=== PATIENT | male | born 1990 | race Caucasian/White ===

== ENCOUNTER 2022-02-13 19:28 | Inpatient (IN) | payer BC, OTHER ==
[~2022-02-13 19:28] MED LIST: Iopamidol 300 61% 100 ML VIAL FS ONE
[2022-02-13 20:09] LABS: #Basophils 0.2 10x3/uL (0.0-0.2); #Eosinphils 0.2 10x3/uL (0.0-0.5); #Monocytes 0.9 10x3/uL (0.0-1.1); %Basophils 1.2 % (0.0-2.0); %Eosinophils 1.2 % (0.0-6.0); %Lymphocytes 7.3 % (18.0-47.0); %Monocytes 7.6 % (0.0-10.0); %Neutrophils 81.7 % (40.0-75.0); Mean Corpuscular HGB CONC 28.6 g/dL (32.0-36.0); Mean Corpuscular Hemoglobin 19.9 pg (27.0-33.0); Mean Corpuscular Volume 69.8 fl (81.2-95.1); Mean Platelet Volume 9.8 fl (7.4-10.4); Platelet Count 236 10x3/uL (150-450); RBC Distribution Width 24.8 % (11.5-14.5); Red Blood Cell (RBC) Count 3.51 10x6/uL (4.32-5.72); White Blood Cell (WBC) Count 12.2 10x3/uL (3.5-10.5)
[2022-02-13] MEDS ORDERED: Furosemide 40 MG/4 ML VIAL ONE (20:10)
[2022-02-13 20:21] LABS: ALT (SGPT) 26 U/L (8-55); AST (SGOT) 150 U/L (5-34); Albumin 3.6 g/dL (3.5-5.0); Alcohol 50 mg/dL (Less than 10); Alkaline Phosphatase 241 U/L (40-110); Anion Gap 20 mmol/L (10-20); BUN (Urea Nitrogen) Less than 4 mg/dL (8.9-20.6); Bilirubin, Total 13.2 mg/dL (0.2-1.2); Calc. Creatinine Clearance 0 mL/min (70-130); Calcium 8.5 mg/dL (7.8-10.44); Carbon Dioxide 20 mmol/L (22-29); Chloride 96 mmol/L (98-107); Estimated GFR 128; Globulin 3.9 g/dL (2.4-3.5); Glucose 103 mg/dL (70-105); Lipase 14 U/L (8-78); Potassium 4.1 mmol/L (3.5-5.1); Protein, Total 7.5 g/dL (6.0-8.3); Sodium 132 mmol/L (136-145)
[2022-02-13 20:31] LABS: Anisocytosis SLIGHT = 6-15 cells (100X) (0-5/hpf); Hypochromia MODERATE=16-30 cells (100X) (0-5/hpf); Microcytosis SLIGHT = 6-15 cells (100X) (0-5/hpf); Platelet Morphology Comment Appears Adequate; Polychromasia SLIGHT = 2-3 cells (100X) (0-2/hpf); Target Cells SLIGHT = 2-5 cells (100X) (0-1/hpf)
[2022-02-13 20:40] LABS: D-Dimer Test 3.04 mg/L FEU (0.19-0.50); INR-International Normal Ratio 1.5; PTT 30.1 sec (22.0-33.0); Prothrombin Time 15.6 sec (9.5-12.1)
[2022-02-13 20:45] LABS: SARS-CoV-2 NAA Rapid Test Not Detected (NotDetected)
[2022-02-13 20:53] LABS: Bilirubin 1+ (Negative); Blood, Urine Negative (Negative); Glucose, Urine (Dipstick) Normal (Negative); Ketone, Urine Negative (Negative); Leukocyte Negative (Negative); Nitrite Negative (Negative); Protein, Urine (Dipstick) Negative (Neg-Trace)
[2022-02-13 21:02] LABS: Amphetamine Not Detected (NotDetected); Barbiturates Screen Not Detected (NotDetected); Benzodiazepine Screen Not Detected (NotDetected); Cocaine Metabolite Screen Not Detected (NotDetected); Methadone Not Detected (NotDetected); Methamphetamine Not Detected (NotDetected); Opiate Screen Not Detected (NotDetected); Oxycodone Screen Not Detected (NotDetected); Phencyclidine (PCP) Not Detected (NotDetected); THC/Cannabinoid Screen Detected (NotDetected); Tricyclic Screen Not Detected (NotDetected)
[2022-02-13] MEDS ORDERED: Pantoprazole 40 MG VIAL ONE (21:13)
[2022-02-13] MEDS ORDERED: Octreotide Acetate 1,250 MCG in Sodium Chloride 0.9% 250 ML 250 ML IVPB SCH (21:15)
[2022-02-13] MEDS ORDERED: Ondansetron PF 4 MG/2 ML Vial IVP PRN (21:21)
[2022-02-13] MEDS ORDERED: Sodium Chloride 0.9% 1,000 ML IV SCH (21:30)
[2022-02-13] MEDS ORDERED: Tranexamic Acid 1,000 MG/10 ML VIAL FS SCH (21:30)
[2022-02-13] MEDS ORDERED: Octreotide Acetate 100 MCG/ML VIAL ONE (21:39)
[2022-02-13] MEDS ORDERED: cefTRIAXone\\ROCEPHIN 2 GM VIAL ONE (21:39)
[2022-02-13] MEDS ORDERED: Lorazepam 2 MG/ML VIAL ONE (21:58)
[2022-02-13] MEDS ORDERED: Albumin 25% 25 GM/100 ML BOT IVPB SCH (22:00)
[2022-02-13 22:08] LABS: Lactic Acid 4.1 mmol/L (0.5-2.2)
[2022-02-13] MEDS ORDERED: Fentanyl 100 MCG/2 ML VIAL ONE (22:14)
[2022-02-13] MEDS ORDERED: PROPOFOL 20 ML ONE (22:14)
[2022-02-13] MEDS ORDERED: Succinylcholine 200 MG/10 ml SYRINGE FS ONE (22:14)
[2022-02-13] MEDS ORDERED: PHENYLEPHRINE-NS 100 MCG/ML 10 ML SYRINGE ONE (22:33)
[2022-02-13] MEDS ORDERED: Ondansetron PF 4 MG/2 ML Vial ONE (22:47)
[2022-02-13 22:50] LABS: Iron 23 ug/dL (65-175); Iron Binding Capacity, Total 326 mcg/dL (261-462)
[2022-02-13] MEDS ORDERED: Dextrose 5 %-0.45 % NaCl 1,000 ML ONE (23:34)
[2022-02-13] MEDS ORDERED: Thiamine HCl 200 MG/2 ML VIAL ONE (23:34)
[2022-02-13] MEDS: Lorazepam 2 MG/ML VIAL SLOW IVP PRN (23:48)
[2022-02-13 23:50] LABS: Lactic Acid 4.8 mmol/L (0.5-2.2)
[2022-02-14] MEDS: Cepastat Lozenges 1 LOZ PO PRN ×4 (00:01→22:07)
[2022-02-14] MEDS: Multivitamins, Adult 10 ML, Folic Acid 1 MG, Thiamine HCl 100 MG in Dextrose 5 %-0.45 %... IV SCH ×2 (00:02→21:07)
[2022-02-14] MEDS ORDERED: Morphine 4 MG/ML VIAL SLOW IVP SCH (00:30)
[2022-02-14] MEDS ORDERED: Lidocaine 2% Viscous Solution 10 ML, Aluminum & Magnesium Hydroxide 30 ML SSW SCH (00:30)
[2022-02-14] MEDS: Pantoprazole 80 MG in Sodium Chloride 0.9% 100 ML IVPB SCH ×3 (01:24→20:10)
[2022-02-14] MEDS: Dextrose 5 %-0.45 % NaCl 1,000 ML IV SCH ×2 (02:37→11:51)
[2022-02-14 02:53] LABS: Hemoglobin 6.9 g/dL (13.5-17.5); Mean Corpuscular HGB CONC 28.8 g/dL (32.0-36.0); Mean Corpuscular Hemoglobin 20.4 pg (27.0-33.0); Mean Corpuscular Volume 70.8 fl (81.2-95.1); Mean Platelet Volume 10.5 fl (7.4-10.4); Platelet Count 141 10x3/uL (150-450); RBC Distribution Width 24.3 % (11.5-14.5); Red Blood Cell (RBC) Count 3.39 10x6/uL (4.32-5.72); White Blood Cell (WBC) Count 16.8 10x3/uL (3.5-10.5)
[2022-02-14 03:01] LABS: INR-International Normal Ratio 1.6; PTT 28.3 sec (22.0-33.0); Prothrombin Time 16.7 sec (9.5-12.1)
[2022-02-14 03:05] LABS: Lactic Acid 2.5 mmol/L (0.5-2.2)
[2022-02-14 03:09] LABS: ALT (SGPT) 25 U/L (8-55); AST (SGOT) 133 U/L (5-34); Albumin 3.5 g/dL (3.5-5.0); Alkaline Phosphatase 235 U/L (40-110); Anion Gap 19 mmol/L (10-20); BUN (Urea Nitrogen) Less than 4 mg/dL (8.9-20.6); Bilirubin, Direct 8.9 mg/dL (0.1-0.3); Bilirubin, Total 13.1 mg/dL (0.2-1.2); Calc. Creatinine Clearance 220 mL/min (70-130); Calcium 8.4 mg/dL (7.8-10.44); Carbon Dioxide 22 mmol/L (22-29); Chloride 97 mmol/L (98-107); Estimated GFR 123; Globulin 3.9 g/dL (2.4-3.5); Glucose 114 mg/dL (70-105); Magnesium 1.8 mg/dL (1.6-2.6); Phosphorus 4.4 mg/dL (2.3-4.7); Potassium 4.6 mmol/L (3.5-5.1); Protein, Total 7.4 g/dL (6.0-8.3); Sodium 133 mmol/L (136-145)
[2022-02-14 03:26] LABS: CK (CPK) 62 U/L (30-200)
[2022-02-14 03:52] LABS: MDiff Complete? YES
[2022-02-14 04:47] LABS: Band 1 % (5-11); Eosinophils 1 % (0-10); Lymphocytes 6 % (21-51); Monocytes 6 % (0-10); Neutrophil 86 % (42-75)
[2022-02-14 04:49] LABS: Anisocytosis SLIGHT = 6-15 cells (100X) (0-5/hpf); Macrocytosis MODERATE=16-30 cells (100X) (0-5/hpf); Ovalocytes SLIGHT = 2-5 cells (100X) (0-1/hpf); Stomatocytes SLIGHT = 2-5 cells (100X) (0-1/hpf); Target Cells MODERATE= 6-15 cells (100X) (0-1/hpf)
[2022-02-14 04:50] LABS: Hypochromia MODERATE=16-30 cells (100X) (0-5/hpf)
[2022-02-14 04:51] LABS: Platelet Morphology Comment Appears Decreased
[2022-02-14] MEDS: Piperacillin/Tazobactam 3.375 GM in Sodium Chloride 0.9% 100 ML IVPB SCH ×3 (05:33→21:45)
[2022-02-14] MEDS: Albumin 25% 25 GM/100 ML BOT IVPB SCH ×3 (05:59→18:46)
[2022-02-14] MEDS: Morphine 4 MG/ML VIAL SLOW IVP PRN ×4 (06:18→23:49)
[2022-02-14] MEDS: Furosemide 40 MG/4 ML VIAL SLOW IVP SCH (07:47)
[2022-02-14] MEDS: Lorazepam 2 MG/ML VIAL SLOW IVP PRN ×4 (07:47→22:07)
[2022-02-14] MEDS: Octreotide Acetate 1,250 MCG in Sodium Chloride 0.9% 250 ML 250 ML IVPB SCH (07:47)
[2022-02-14 08:56] LABS: #Basophils 0.1 10x3/uL (0.0-0.2); #Eosinphils 0.1 10x3/uL (0.0-0.5); #Neutrophils 11.6 10x3/uL (1.5-8.4); %Basophils 0.7 % (0.0-2.0); %Eosinophils 0.7 % (0.0-6.0); %Lymphocytes 5.5 % (18.0-47.0); %Neutrophils 84.8 % (40.0-75.0); Hemoglobin 7.1 g/dL (13.5-17.5); Mean Corpuscular HGB CONC 29.3 g/dL (32.0-36.0); Mean Corpuscular Hemoglobin 20.9 pg (27.0-33.0); Mean Corpuscular Volume 71.2 fl (81.2-95.1); Mean Platelet Volume 9.7 fl (7.4-10.4); Platelet Count 204 10x3/uL (150-450); RBC Distribution Width 23.1 % (11.5-14.5); White Blood Cell (WBC) Count 13.7 10x3/uL (3.5-10.5)
[2022-02-14] MEDS ORDERED: cefTRIAXone\\ROCEPHIN 2 GM in Sodium Chloride 0.9% 100 ML IVPB SCH (09:00)
[2022-02-14] MEDS: Acetaminophen 325 MG TAB PO PRN (09:07)
[2022-02-14 11:01] LABS: Anisocytosis SLIGHT = 6-15 cells (100X) (0-5/hpf); Elliptocytes SLIGHT = 2-5 cells (100X) (0-1/hpf); Hypochromia MODERATE=16-30 cells (100X) (0-5/hpf); Poikilocytosis SLIGHT = 6-15 cells (100X) (0-5/hpf); Polychromasia SLIGHT = 2-3 cells (100X) (0-2/hpf); Spherocytes SLIGHT = 1-5 cells (100X) (None Seen); Target Cells SLIGHT = 2-5 cells (100X) (0-1/hpf); Tear Drops SLIGHT = 2-5 cells (100X) (0-1/hpf)
[2022-02-14 11:02] LABS: Platelet Morphology Comment Appears Adequate
[2022-02-14] MEDS ORDERED: Lidocaine 1% PF 5 ML VIAL ONE (14:12)
[2022-02-14] MEDS ORDERED: Sodium Bicarbonate 2.5 MEQ/5 ML VIAL ONE (14:12)
[2022-02-14 15:55] LABS: #Basophils 0.1 10x3/uL (0.0-0.2); #Eosinphils 0.2 10x3/uL (0.0-0.5); #Monocytes 0.8 10x3/uL (0.0-1.1); #Neutrophils 9.2 10x3/uL (1.5-8.4); %Basophils 1.2 % (0.0-2.0); %Eosinophils 1.4 % (0.0-6.0); %Lymphocytes 6.5 % (18.0-47.0); %Monocytes 7.1 % (0.0-10.0); Hemoglobin 6.8 g/dL (13.5-17.5); Mean Corpuscular Hemoglobin 20.8 pg (27.0-33.0); Mean Corpuscular Volume 74.3 fl (81.2-95.1); Mean Platelet Volume 10.2 fl (7.4-10.4); Platelet Count 222 10x3/uL (150-450); RBC Distribution Width 23.7 % (11.5-14.5); Red Blood Cell (RBC) Count 3.27 10x6/uL (4.32-5.72); White Blood Cell (WBC) Count 11.1 10x3/uL (3.5-10.5)
[2022-02-14] MEDS ORDERED: Phytonadione 10 MG/ML AMP PO SCH (19:45)
[2022-02-14 19:46] LABS: BF Color Yellow; Body Fluid Source Ascites Body Fluid; Clarity Hazy (Clear); Tube # EDTA
[2022-02-14 20:55] LABS: #Basophils 0.1 10x3/uL (0.0-0.2); #Eosinphils 0.2 10x3/uL (0.0-0.5); #Monocytes 0.8 10x3/uL (0.0-1.1); #Neutrophils 9.6 10x3/uL (1.5-8.4); %Basophils 0.9 % (0.0-2.0); %Eosinophils 1.9 % (0.0-6.0); %Lymphocytes 6.1 % (18.0-47.0); %Monocytes 7.2 % (0.0-10.0); %Neutrophils 83.2 % (40.0-75.0); Hemoglobin 6.5 g/dL (13.5-17.5); Mean Corpuscular HGB CONC 29.1 g/dL (32.0-36.0); Mean Corpuscular Hemoglobin 20.8 pg (27.0-33.0); Mean Corpuscular Volume 71.2 fl (81.2-95.1); Platelet Count 188 10x3/uL (150-450); RBC Distribution Width 23.4 % (11.5-14.5); Red Blood Cell (RBC) Count 3.13 10x6/uL (4.32-5.72); White Blood Cell (WBC) Count 11.5 10x3/uL (3.5-10.5)
[2022-02-14] MEDS: Oxymetazoline HCl 0.05% ( 15 ML ) NASAL SCH (21:47)
[2022-02-14 22:07] LABS: Hypochromia SLIGHT = 6-15 cells (100X) (0-5/hpf); Macrocytosis SLIGHT = 6-15 cells (100X) (0-5/hpf); Platelet Morphology Comment Appears Adequate; Target Cells SLIGHT = 2-5 cells (100X) (0-1/hpf)
[2022-02-14 22:08] LABS: Anisocytosis SLIGHT = 6-15 cells (100X) (0-5/hpf)
[2022-02-14 22:08] LABS: Anisocytosis SLIGHT = 6-15 cells (100X) (0-5/hpf)
[2022-02-14 22:09] LABS: Hypochromia SLIGHT = 6-15 cells (100X) (0-5/hpf); Macrocytosis SLIGHT = 6-15 cells (100X) (0-5/hpf); Stomatocytes SLIGHT = 2-5 cells (100X) (0-1/hpf); Target Cells SLIGHT = 2-5 cells (100X) (0-1/hpf)
[2022-02-14 22:10] LABS: Stomatocytes SLIGHT = 2-5 cells (100X) (0-1/hpf)
[2022-02-14] MEDS ORDERED: Mag-Al Plus 1200 MG/1200 MG/120 MG/30 ML UDCUP PO SCH (23:15)
[2022-02-15] MEDS: Albumin 25% 25 GM/100 ML BOT IVPB SCH ×2 (01:15→05:20)
[2022-02-15] MEDS: Dextrose 5 %-0.45 % NaCl 1,000 ML IV SCH (01:30)
[2022-02-15] MEDS: Lorazepam 2 MG/ML VIAL SLOW IVP PRN ×5 (02:18→22:11)
[2022-02-15 02:58] LABS: #Basophils 0.1 10x3/uL (0.0-0.2); #Eosinphils 0.3 10x3/uL (0.0-0.5); #Monocytes 0.8 10x3/uL (0.0-1.1); #Neutrophils 10.3 10x3/uL (1.5-8.4); %Eosinophils 2.3 % (0.0-6.0); %Lymphocytes 5.4 % (18.0-47.0); %Monocytes 6.2 % (0.0-10.0); %Neutrophils 84.6 % (40.0-75.0); Hemoglobin 7.3 g/dL (13.5-17.5); Mean Corpuscular HGB CONC 30.2 g/dL (32.0-36.0); Mean Corpuscular Hemoglobin 21.5 pg (27.0-33.0); Mean Corpuscular Volume 71.2 fl (81.2-95.1); Mean Platelet Volume 9.7 fl (7.4-10.4); Platelet Count 178 10x3/uL (150-450); RBC Distribution Width 22.9 % (11.5-14.5); White Blood Cell (WBC) Count 12.2 10x3/uL (3.5-10.5)
[2022-02-15 03:09] LABS: INR-International Normal Ratio 1.6; PTT 31.8 sec (22.0-33.0); Prothrombin Time 16.9 sec (9.5-12.1)
[2022-02-15 03:21] LABS: ALT (SGPT) 22 U/L (8-55); AST (SGOT) 126 U/L (5-34); Albumin 3.8 g/dL (3.5-5.0); Alkaline Phosphatase 187 U/L (40-110); Anion Gap 16 mmol/L (10-20); BUN (Urea Nitrogen) 5 mg/dL (8.9-20.6); Bilirubin, Total 12.3 mg/dL (0.2-1.2); Calc. Creatinine Clearance 220 mL/min (70-130); Carbon Dioxide 25 mmol/L (22-29); Chloride 95 mmol/L (98-107); Estimated GFR 123; Globulin 3.4 g/dL (2.4-3.5); Glucose 110 mg/dL (70-105); Potassium 3.9 mmol/L (3.5-5.1); Protein, Total 7.2 g/dL (6.0-8.3); Sodium 132 mmol/L (136-145)
[2022-02-15] MEDS: Piperacillin/Tazobactam 3.375 GM in Sodium Chloride 0.9% 100 ML IVPB SCH ×3 (05:19→21:20)
[2022-02-15] MEDS: Furosemide 40 MG/4 ML VIAL SLOW IVP SCH (05:33)
[2022-02-15] MEDS: Morphine 4 MG/ML VIAL SLOW IVP PRN ×4 (05:33→23:39)
[2022-02-15] MEDS: Cepastat Lozenges 1 LOZ PO PRN ×3 (05:34→12:02)
[2022-02-15 06:05] LABS: Hypochromia SLIGHT = 6-15 cells (100X) (0-5/hpf); Macrocytosis SLIGHT = 6-15 cells (100X) (0-5/hpf); Microcytosis SLIGHT = 6-15 cells (100X) (0-5/hpf); Stomatocytes SLIGHT = 2-5 cells (100X) (0-1/hpf); Target Cells SLIGHT = 2-5 cells (100X) (0-1/hpf)
[2022-02-15 06:06] LABS: Anisocytosis SLIGHT = 6-15 cells (100X) (0-5/hpf)
[2022-02-15] MEDS: Pantoprazole 80 MG in Sodium Chloride 0.9% 100 ML IVPB SCH ×2 (07:07→16:51)
[2022-02-15 08:18] LABS: #Basophils 0.1 10x3/uL (0.0-0.2); #Eosinphils 0.3 10x3/uL (0.0-0.5); #Monocytes 0.8 10x3/uL (0.0-1.1); #Neutrophils 10.9 10x3/uL (1.5-8.4); %Basophils 1.1 % (0.0-2.0); %Eosinophils 2.2 % (0.0-6.0); %Lymphocytes 5.4 % (18.0-47.0); %Neutrophils 84.5 % (40.0-75.0); Hemoglobin 7.2 g/dL (13.5-17.5); Mean Corpuscular HGB CONC 29.6 g/dL (32.0-36.0); Mean Corpuscular Hemoglobin 21.4 pg (27.0-33.0); Mean Corpuscular Volume 72.1 fl (81.2-95.1); Mean Platelet Volume 9.5 fl (7.4-10.4); Platelet Count 178 10x3/uL (150-450); Red Blood Cell (RBC) Count 3.37 10x6/uL (4.32-5.72); White Blood Cell (WBC) Count 12.9 10x3/uL (3.5-10.5)
[2022-02-15] MEDS: Oxymetazoline HCl 0.05% ( 15 ML ) NASAL SCH ×2 (08:28→21:11)
[2022-02-15] MEDS: Acetaminophen 325 MG TAB PO PRN (08:30)
[2022-02-15] MEDS: Propranolol HCl 20 MG TAB PO SCH ×2 (08:30→21:11)
[2022-02-15] MEDS ORDERED: FLU VACC QS2022-23(6MOS UP)/PF 60 MCG/0.5 ML SYRINGE IM ONE (09:00)
[2022-02-15] MEDS: Octreotide Acetate 1,250 MCG in Sodium Chloride 0.9% 250 ML 250 ML IVPB SCH (10:47)
[2022-02-15 11:32] LABS: Anisocytosis SLIGHT = 6-15 cells (100X) (0-5/hpf); Elliptocytes SLIGHT = 2-5 cells (100X) (0-1/hpf); Hypochromia SLIGHT = 6-15 cells (100X) (0-5/hpf); Poikilocytosis SLIGHT = 6-15 cells (100X) (0-5/hpf); Target Cells MODERATE= 6-15 cells (100X) (0-1/hpf); Tear Drops SLIGHT = 2-5 cells (100X) (0-1/hpf)
[2022-02-15 11:34] LABS: Platelet Morphology Comment Appears Adequate
[2022-02-15] MEDS: Multivitamins, Adult 10 ML, Folic Acid 1 MG, Thiamine HCl 100 MG in Dextrose 5 %-0.45 %... IV SCH (21:42)
[2022-02-16] MEDS ORDERED: Furosemide 40 MG/4 ML VIAL SLOW IVP SCH (02:00)
[2022-02-16] MEDS: Pantoprazole 80 MG in Sodium Chloride 0.9% 100 ML IVPB SCH ×3 (02:10→22:38)
[2022-02-16 02:21] LABS: #Basophils 0.1 10x3/uL (0.0-0.2); #Eosinphils 0.3 10x3/uL (0.0-0.5); #Monocytes 0.9 10x3/uL (0.0-1.1); #Neutrophils 10.8 10x3/uL (1.5-8.4); %Basophils 0.8 % (0.0-2.0); %Lymphocytes 6.3 % (18.0-47.0); %Monocytes 7.2 % (0.0-10.0); %Neutrophils 83.1 % (40.0-75.0); Hemoglobin 7.6 g/dL (13.5-17.5); Mean Corpuscular Hemoglobin 21.8 pg (27.0-33.0); Mean Corpuscular Volume 72.7 fl (81.2-95.1); Mean Platelet Volume 9.9 fl (7.4-10.4); Platelet Count 185 10x3/uL (150-450); RBC Distribution Width 23.6 % (11.5-14.5); Red Blood Cell (RBC) Count 3.48 10x6/uL (4.32-5.72)
[2022-02-16 02:35] LABS: INR-International Normal Ratio 1.6; PTT 31.4 sec (22.0-33.0); Prothrombin Time 16.7 sec (9.5-12.1)
[2022-02-16 02:37] LABS: ALT (SGPT) 19 U/L (8-55); AST (SGOT) 124 U/L (5-34); Albumin 3.5 g/dL (3.5-5.0); Alkaline Phosphatase 168 U/L (40-110); Anion Gap 15 mmol/L (10-20); BUN (Urea Nitrogen) Less than 4 mg/dL (8.9-20.6); Bilirubin, Total 13.5 mg/dL (0.2-1.2); Calc. Creatinine Clearance 241 mL/min (70-130); Calcium 7.9 mg/dL (7.8-10.44); Carbon Dioxide 24 mmol/L (22-29); Chloride 96 mmol/L (98-107); Estimated GFR 126; Globulin 3.3 g/dL (2.4-3.5); Glucose 125 mg/dL (70-105); Potassium 3.7 mmol/L (3.5-5.1); Protein, Total 6.8 g/dL (6.0-8.3); Sodium 131 mmol/L (136-145)
[2022-02-16] MEDS ORDERED: Potassium Chloride 20 MEQ TAB PO SCH (03:15)
[2022-02-16] MEDS: Piperacillin/Tazobactam 3.375 GM in Sodium Chloride 0.9% 100 ML IVPB SCH ×2 (05:30→13:19)
[2022-02-16] MEDS: Acetaminophen 325 MG TAB PO PRN (05:31)
[2022-02-16] MEDS: Lorazepam 2 MG/ML VIAL SLOW IVP PRN ×3 (05:42→21:27)
[2022-02-16] MEDS: Furosemide 40 MG/4 ML VIAL SLOW IVP SCH (06:23)
[2022-02-16] MEDS: Propranolol HCl 20 MG TAB PO SCH ×2 (08:55→20:07)
[2022-02-16] MEDS: Oxymetazoline HCl 0.05% ( 15 ML ) NASAL SCH ×2 (09:43→20:07)
[2022-02-16] MEDS: Octreotide Acetate 1,250 MCG in Sodium Chloride 0.9% 250 ML 250 ML IVPB SCH (13:57)
[2022-02-16] MEDS: Morphine 4 MG/ML VIAL SLOW IVP PRN ×2 (17:36→22:40)
[2022-02-17] MEDS: Propranolol HCl 20 MG TAB PO SCH ×2 (08:29→20:07)
[2022-02-17] MEDS: Furosemide 40 MG/4 ML VIAL SLOW IVP SCH (08:29)
[2022-02-17] MEDS: Oxymetazoline HCl 0.05% ( 15 ML ) NASAL SCH ×2 (08:29→20:08)
[2022-02-17] MEDS: Morphine 4 MG/ML VIAL SLOW IVP PRN (09:05)
[2022-02-17 10:36] LABS: #Basophils 0.1 10x3/uL (0.0-0.2); #Eosinphils 0.3 10x3/uL (0.0-0.5); #Monocytes 0.9 10x3/uL (0.0-1.1); #Neutrophils 11.7 10x3/uL (1.5-8.4); %Eosinophils 2.4 % (0.0-6.0); %Lymphocytes 6.4 % (18.0-47.0); %Monocytes 6.2 % (0.0-10.0); %Neutrophils 83.4 % (40.0-75.0); Hemoglobin 8.2 g/dL (13.5-17.5); Mean Corpuscular HGB CONC 29.3 g/dL (32.0-36.0); Mean Corpuscular Hemoglobin 22.1 pg (27.0-33.0); Mean Corpuscular Volume 75.5 fl (81.2-95.1); Mean Platelet Volume 10.1 fl (7.4-10.4); Platelet Count 178 10x3/uL (150-450); RBC Distribution Width 24.9 % (11.5-14.5); Red Blood Cell (RBC) Count 3.71 10x6/uL (4.32-5.72)
[2022-02-17 10:57] LABS: Anion Gap 13 mmol/L (10-20); BUN (Urea Nitrogen) 7 mg/dL (8.9-20.6); Calc. Creatinine Clearance 241 mL/min (70-130); Calcium 8.5 mg/dL (7.8-10.44); Carbon Dioxide 28 mmol/L (22-29); Chloride 97 mmol/L (98-107); Estimated GFR 126; Glucose 107 mg/dL (70-105); Potassium 3.7 mmol/L (3.5-5.1); Sodium 134 mmol/L (136-145)
[2022-02-17] MEDS ORDERED: Thiamine 100 MG TAB PO SCH (11:45)
[2022-02-17] MEDS ORDERED: Spironolactone 25 MG TAB PO SCH (15:45)
[2022-02-17] MEDS: HYDROcodone/Acetaminophen 5/325 mg Tablet PO PRN ×2 (16:11→20:08)
[2022-02-17 19:52] VITALS: BMI 32.2
[2022-02-17] MEDS ORDERED: Famotidine/PF 20 mg/2ml Vial SLOW IVP SCH (22:30)
[2022-02-18] MEDS ORDERED: chlorproMAZINE HCl 25 MG in Sodium Chloride 0.9% 50 ML IVPB SCH (00:45)
[2022-02-18] MEDS: HYDROcodone/Acetaminophen 5/325 mg Tablet PO PRN ×3 (05:55→20:39)
[2022-02-18] MEDS: Spironolactone 25 MG TAB PO SCH (08:11)
[2022-02-18] MEDS: Propranolol HCl 20 MG TAB PO SCH ×2 (08:11→20:38)
[2022-02-18] MEDS: Furosemide 40 MG/4 ML VIAL SLOW IVP SCH (08:12)
[2022-02-18] MEDS: Thiamine 100 MG TAB PO SCH (08:12)
[2022-02-18] MEDS: Lorazepam 2 MG/ML VIAL SLOW IVP PRN (16:27)
[2022-02-18] MEDS ORDERED: Lorazepam 2 MG/ML VIAL SLOW IVP PRN (16:41)
[2022-02-18] MEDS ORDERED: Baclofen 10 MG TAB PO SCH (21:00)
[2022-02-19] MEDS: HYDROcodone/Acetaminophen 5/325 mg Tablet PO PRN ×2 (01:31→10:03)
[2022-02-19] MEDS ORDERED: Folic Acid 1 MG TAB PO SCH (09:00)
[2022-02-19] MEDS: Spironolactone 25 MG TAB PO SCH (09:54)
[2022-02-19] MEDS: Thiamine 100 MG TAB PO SCH (09:54)
[2022-02-19] MEDS: Furosemide 40 MG/4 ML VIAL SLOW IVP SCH (09:57)
[2022-02-19] MEDS: Propranolol HCl 20 MG TAB PO SCH (10:04)
[2022-02-19 10:51] VITALS: BP 124/77; TEMP 98.3
[2022-02-20] MEDS ORDERED: Furosemide 40 MG TAB PO SCH (07:30)
== END 2022-02-19 11:02 | disposition home or self-care (01) | DRG 871 ==
LOC: CSHERS 19:28 → CSHIMCU 22:57 → CSHTELE 02-18 23:27
PROVIDERS: ADMIT Student in an Organized Health Care Education/Training Program; ATTEND Internal Medicine
PROC: 06L38CZ Occlusion of Esophageal Vein with Extraluminal Device, Via Natural or Artificial Opening Endoscopic (ICD-10-PCS; principal; 2022-02-13)
PROC: 30233N1 Transfusion of Nonautologous Red Blood Cells into Peripheral Vein, Percutaneous Approach (ICD-10-PCS; 2022-02-13)
PROC: 3E03329 Introduction of Other Anti-infective into Peripheral Vein, Percutaneous Approach (ICD-10-PCS; 2022-02-13)
PROC: 0W9G3ZZ Drainage of Peritoneal Cavity, Percutaneous Approach (ICD-10-PCS; 2022-02-14)
DX: A41.9 Sepsis, unspecified organism (principal); J96.01 Acute respiratory failure with hypoxia; D62 Acute posthemorrhagic anemia; I85.10 Secondary esophageal varices without bleeding; R65.20 Severe sepsis without septic shock; K70.31 Alcoholic cirrhosis of liver with ascites; K70.10 Alcoholic hepatitis without ascites; R04.0 Epistaxis; F10.20 Alcohol dependence, uncomplicated; K31.89 Other diseases of stomach and duodenum; Z87.19 Personal history of other diseases of the digestive system; Z87.891 Personal history of nicotine dependence
CPT/HCPCS: 36415; 36430; 49083; 71045; 74177; 80048; 80053; 80306; 80307; 81003; 82042; 82140; 82248; 82274; 82550; 82728; 83540; 83550; 83605; 83690; 83735; 83880; 84100; 84157; 84484; 85025; 85049; 85300; 85362; 85379; 85384; 85610; 85730; 86850; 86900; 86901; 87040; 87070; 87205; 88112; 89051; 93005; 94760; 96365; 96375; 99292; C9113; J0696; J1940; J2060; J2270; J2354; J2405; J2543; J2704; J3010; J3230; J3411; J3430; J3490; J7042; J7050; P9016; P9047; Q9967; S0028; U0002

== ENCOUNTER 2022-02-28 20:25 | Inpatient (IN) | payer OTHER ==
[2022-02-28 22:23] LABS: ALT (SGPT) 13 U/L (8-55); AST (SGOT) 129 U/L (5-34); Albumin 3.3 g/dL (3.5-5.0); Alkaline Phosphatase 173 U/L (40-110); Anion Gap 17 mmol/L (10-20); BUN (Urea Nitrogen) 13 mg/dL (8.9-20.6); Calc. Creatinine Clearance 0 mL/min (70-130); Calcium 8.9 mg/dL (7.8-10.44); Carbon Dioxide 22 mmol/L (22-29); Chloride 97 mmol/L (98-107); Estimated GFR 83; Globulin 3.8 g/dL (2.4-3.5); Glucose 96 mg/dL (70-105); Lipase 62 U/L (8-78); Potassium 4.1 mmol/L (3.5-5.1); Protein, Total 7.1 g/dL (6.0-8.3); Sodium 132 mmol/L (136-145)
[2022-02-28 22:35] LABS: #Basophils 0.2 10x3/uL (0.0-0.2); #Eosinphils 0.3 10x3/uL (0.0-0.5); #Monocytes 1.4 10x3/uL (0.0-1.1); #Neutrophils 12.6 10x3/uL (1.5-8.4); %Basophils 1.1 % (0.0-2.0); %Monocytes 8.9 % (0.0-10.0); %Neutrophils 79.4 % (40.0-75.0); Hemoglobin 8.8 g/dL (13.5-17.5); Mean Corpuscular HGB CONC 31.2 g/dL (32.0-36.0); Mean Corpuscular Hemoglobin 22.7 pg (27.0-33.0); Mean Corpuscular Volume 72.7 fl (81.2-95.1); Mean Platelet Volume 10.4 fl (7.4-10.4); Platelet Count 397 10x3/uL (150-450); RBC Distribution Width 26.7 % (11.5-14.5); Red Blood Cell (RBC) Count 3.88 10x6/uL (4.32-5.72); White Blood Cell (WBC) Count 15.8 10x3/uL (3.5-10.5)
[2022-02-28 22:41] LABS: Bilirubin, Total 29.4 mg/dL (0.2-1.2)
[2022-02-28 23:48] LABS: Hypochromia SLIGHT = 6-15 cells (100X) (0-5/hpf); Microcytosis SLIGHT = 6-15 cells (100X) (0-5/hpf); Target Cells SLIGHT = 2-5 cells (100X) (0-1/hpf)
[2022-02-28 23:49] LABS: Anisocytosis SLIGHT = 6-15 cells (100X) (0-5/hpf); Schistocytes SLIGHT = 2-5 cells (100X) (0-1/hpf)
[2022-03-01] MEDS ORDERED: Guaifenesin DM 100-10/5 ML UDCUP PO PRN (00:35)
[2022-03-01] MEDS ORDERED: Senokot S 8.6-50 MG TAB PO PRN (00:35)
[2022-03-01] MEDS ORDERED: Calcium Carbonate 500 MG ChewTAB PO PRN (00:35)
[2022-03-01] MEDS ORDERED: Ondansetron PF 4 MG/2 ML Vial IVP PRN (00:35)
[2022-03-01] MEDS ORDERED: Furosemide 40 MG/4 ML VIAL SLOW IVP SCH (00:45)
[2022-03-01] MEDS ORDERED: Furosemide 40 MG/4 ML VIAL ONE (01:21)
[2022-03-01] MEDS ORDERED: cefTRIAXone\\ROCEPHIN 2 GM VIAL ONE (01:22)
[2022-03-01] MEDS: cefTRIAXone\\ROCEPHIN 2 GM in Sodium Chloride 0.9% 100 ML IVPB SCH (01:29)
[2022-03-01] MEDS ORDERED: Albumin 25% 100 ML ONE ×4 (03:39→20:40)
[2022-03-01] MEDS: Albumin 25% 25 GM/100 ML BOT IVPB SCH ×4 (03:45→20:57)
[2022-03-01 04:01] LABS: #Basophils 0.2 10x3/uL (0.0-0.2); #Eosinphils 0.3 10x3/uL (0.0-0.5); #Monocytes 1.5 10x3/uL (0.0-1.1); #Neutrophils 12.8 10x3/uL (1.5-8.4); %Basophils 1.2 % (0.0-2.0); %Lymphocytes 9.1 % (18.0-47.0); %Monocytes 9.1 % (0.0-10.0); %Neutrophils 78.1 % (40.0-75.0); Hemoglobin 8.1 g/dL (13.5-17.5); Mean Corpuscular HGB CONC 30.2 g/dL (32.0-36.0); Mean Corpuscular Hemoglobin 22.6 pg (27.0-33.0); Mean Corpuscular Volume 74.7 fl (81.2-95.1); Mean Platelet Volume 10.6 fl (7.4-10.4); Platelet Count 388 10x3/uL (150-450); RBC Distribution Width 26.4 % (11.5-14.5); Red Blood Cell (RBC) Count 3.59 10x6/uL (4.32-5.72); White Blood Cell (WBC) Count 16.4 10x3/uL (3.5-10.5)
[2022-03-01 04:16] LABS: PTT 31.1 sec (22.0-33.0); Prothrombin Time 20.7 sec (9.5-12.1)
[2022-03-01 04:32] LABS: Bilirubin, Total 29.3 mg/dL (0.2-1.2)
[2022-03-01 04:37] LABS: ALT (SGPT) 13 U/L (8-55); AST (SGOT) 130 U/L (5-34); Acetaminophen Less than 10.0 mcg/mL (10.0-30.0); Albumin 3.2 g/dL (3.5-5.0); Alkaline Phosphatase 165 U/L (40-110); Anion Gap 17 mmol/L (10-20); BUN (Urea Nitrogen) 14 mg/dL (8.9-20.6); Calc. Creatinine Clearance 0 mL/min (70-130); Carbon Dioxide 20 mmol/L (22-29); Chloride 97 mmol/L (98-107); Estimated GFR 85; Globulin 3.6 g/dL (2.4-3.5); Glucose 95 mg/dL (70-105); Protein, Total 6.8 g/dL (6.0-8.3); Sodium 130 mmol/L (136-145)
[2022-03-01 06:39] LABS: Anisocytosis SLIGHT = 6-15 cells (100X) (0-5/hpf)
[2022-03-01 06:40] LABS: Elliptocytes SLIGHT = 2-5 cells (100X) (0-1/hpf); Hypochromia SLIGHT = 6-15 cells (100X) (0-5/hpf); Microcytosis SLIGHT = 6-15 cells (100X) (0-5/hpf); Poikilocytosis SLIGHT = 6-15 cells (100X) (0-5/hpf); Schistocytes SLIGHT = 2-5 cells (100X) (0-1/hpf); Target Cells MODERATE= 6-15 cells (100X) (0-1/hpf); Tear Drops SLIGHT = 2-5 cells (100X) (0-1/hpf)
[2022-03-01] MEDS: Spironolactone 25 MG TAB PO SCH (08:45)
[2022-03-01] MEDS: Furosemide 40 MG TAB PO SCH (08:45)
[2022-03-01] MEDS ORDERED: Furosemide 40 MG TAB ONE (08:51)
[2022-03-01] MEDS ORDERED: Multivitamin W/ Minerals 1 TAB ONE (08:51)
[2022-03-01] MEDS ORDERED: Thiamine 100 MG TAB ONE (08:51)
[2022-03-01] MEDS ORDERED: Folic Acid 1 MG TAB ONE (08:52)
[2022-03-01] MEDS: Gabapentin 100 MG CAP PO SCH (09:07)
[2022-03-01] MEDS: Folic Acid 1 MG TAB PO SCH (09:07)
[2022-03-01] MEDS: Multivitamin W/ Minerals 1 TAB PO SCH (09:08)
[2022-03-01] MEDS: Propranolol HCl 20 MG TAB PO SCH ×2 (09:11→23:18)
[2022-03-01] MEDS: Thiamine 100 MG TAB PO SCH (09:11)
[2022-03-01 14:36] LABS: HBCM Index 0.06 S/CO (0-0.79); HBSAg Index 0.29 S/CO (0-0.99); Hep A IgM AB Non-Reactive (NonReactive); Hep A IgM S/CO 0.15 S/CO (0-0.79); Hep B Surf Ag Non-Reactive S/CO (NonReactive); Hep C IgG Ab Non-Reactive (NonReactive); Hep C Index 0.11 S/CO (0-0.79); Hepatitis B Core IgM Abs Non-Reactive (NonReactive)
[2022-03-01 22:54] VITALS: BMI 35.2
[2022-03-01] MEDS ORDERED: traMADol HCl 50 MG TAB PO SCH (23:15)
[2022-03-02] MEDS: cefTRIAXone\\ROCEPHIN 2 GM in Sodium Chloride 0.9% 100 ML IVPB SCH (00:50)
[2022-03-02] MEDS: Albumin 25% 25 GM/100 ML BOT IVPB SCH (02:23)
[2022-03-02 04:20] LABS: INR-International Normal Ratio 1.8; Prothrombin Time 19.1 sec (9.5-12.1)
[2022-03-02 04:39] LABS: Bilirubin, Total 28.1 mg/dL (0.2-1.2)
[2022-03-02 04:42] LABS: ALT (SGPT) 10 U/L (8-55); AST (SGOT) 100 U/L (5-34); Albumin 3.5 g/dL (3.5-5.0); Alkaline Phosphatase 143 U/L (40-110); Anion Gap 16 mmol/L (10-20); BUN (Urea Nitrogen) 12 mg/dL (8.9-20.6); Calc. Creatinine Clearance 182 mL/min (70-130); Calcium 8.9 mg/dL (7.8-10.44); Carbon Dioxide 22 mmol/L (22-29); Chloride 95 mmol/L (98-107); Estimated GFR 105; Globulin 3.1 g/dL (2.4-3.5); Glucose 92 mg/dL (70-105); Potassium 3.7 mmol/L (3.5-5.1); Protein, Total 6.6 g/dL (6.0-8.3); Sodium 129 mmol/L (136-145)
[2022-03-02 04:46] LABS: #Basophils 0.1 10x3/uL (0.0-0.2); #Eosinphils 0.4 10x3/uL (0.0-0.5); #Monocytes 1.2 10x3/uL (0.0-1.1); #Neutrophils 10.9 10x3/uL (1.5-8.4); %Eosinophils 2.6 % (0.0-6.0); %Lymphocytes 8.7 % (18.0-47.0); %Monocytes 8.4 % (0.0-10.0); %Neutrophils 78.6 % (40.0-75.0); Hemoglobin 7.2 g/dL (13.5-17.5); Mean Corpuscular HGB CONC 31.4 g/dL (32.0-36.0); Mean Corpuscular Hemoglobin 22.7 pg (27.0-33.0); Mean Corpuscular Volume 72.2 fl (81.2-95.1); Mean Platelet Volume 10.4 fl (7.4-10.4); Platelet Count 321 10x3/uL (150-450); Red Blood Cell (RBC) Count 3.17 10x6/uL (4.32-5.72); White Blood Cell (WBC) Count 13.9 10x3/uL (3.5-10.5)
[2022-03-02] MEDS: Furosemide 40 MG TAB PO SCH (07:46)
[2022-03-02] MEDS ORDERED: FLU VACC QS2022-23(6MOS UP)/PF 60 MCG/0.5 ML SYRINGE IM ONE (09:00)
[2022-03-02] MEDS ORDERED: Sodium Bicarbonate 2.5 MEQ/5 ML VIAL ONE (09:39)
[2022-03-02] MEDS ORDERED: Lidocaine 1% PF 5 ML VIAL ONE (09:39)
[2022-03-02] MEDS: Gabapentin 100 MG CAP PO SCH (10:27)
[2022-03-02] MEDS: Multivitamin W/ Minerals 1 TAB PO SCH (10:27)
[2022-03-02] MEDS: Spironolactone 25 MG TAB PO SCH (10:27)
[2022-03-02] MEDS: Thiamine 100 MG TAB PO SCH (10:27)
[2022-03-02] MEDS: Propranolol HCl 20 MG TAB PO SCH ×2 (10:27→20:31)
[2022-03-02] MEDS: Folic Acid 1 MG TAB PO SCH (10:27)
[2022-03-02 11:22] LABS: BF Color Yellow; Body Fluid Source Ascites Body Fluid; Clarity Clear (Clear); Tube # EDTA
[2022-03-02] MEDS: traMADol HCl 50 MG TAB PO PRN (12:33)
[2022-03-02 13:10] LABS: BF Segmented Neutrophils 13 %; Cell Count Non Hematic 65 %; Lymphocytes 23 %
[2022-03-02] MEDS: Morphine 2 MG/ML VIAL SLOW IVP PRN (20:30)
[2022-03-03] MEDS: Morphine 2 MG/ML VIAL SLOW IVP PRN ×3 (00:39→04:51)
[2022-03-03] MEDS: cefTRIAXone\\ROCEPHIN 2 GM in Sodium Chloride 0.9% 100 ML IVPB SCH (00:42)
[2022-03-03 04:47] LABS: #Basophils 0.2 10x3/uL (0.0-0.2); #Eosinphils 0.4 10x3/uL (0.0-0.5); #Monocytes 1.2 10x3/uL (0.0-1.1); #Neutrophils 12.1 10x3/uL (1.5-8.4); %Basophils 1.1 % (0.0-2.0); %Eosinophils 2.6 % (0.0-6.0); %Neutrophils 80.6 % (40.0-75.0); Hemoglobin 7.7 g/dL (13.5-17.5); Mean Corpuscular HGB CONC 31.8 g/dL (32.0-36.0); Mean Corpuscular Hemoglobin 23.1 pg (27.0-33.0); Mean Corpuscular Volume 72.5 fl (81.2-95.1); Mean Platelet Volume 10.4 fl (7.4-10.4); Platelet Count 322 10x3/uL (150-450); RBC Distribution Width 26.2 % (11.5-14.5); Red Blood Cell (RBC) Count 3.34 10x6/uL (4.32-5.72)
[2022-03-03 05:00] LABS: ALT (SGPT) 11 U/L (8-55); AST (SGOT) 118 U/L (5-34); Albumin 3.4 g/dL (3.5-5.0); Alkaline Phosphatase 162 U/L (40-110); Anion Gap 16 mmol/L (10-20); BUN (Urea Nitrogen) 11 mg/dL (8.9-20.6); Calc. Creatinine Clearance 194 mL/min (70-130); Calcium 8.9 mg/dL (7.8-10.44); Carbon Dioxide 22 mmol/L (22-29); Chloride 94 mmol/L (98-107); Estimated GFR 113; Globulin 3.1 g/dL (2.4-3.5); Glucose 89 mg/dL (70-105); Potassium 3.7 mmol/L (3.5-5.1); Protein, Total 6.5 g/dL (6.0-8.3); Sodium 128 mmol/L (136-145)
[2022-03-03 05:08] LABS: Bilirubin, Total 29.1 mg/dL (0.2-1.2)
[2022-03-03 08:18] VITALS: TEMP 98.7
[2022-03-03] MEDS: traMADol HCl 50 MG TAB PO PRN (10:33)
[2022-03-03] MEDS: Furosemide 40 MG TAB PO SCH (10:36)
[2022-03-03] MEDS: Thiamine 100 MG TAB PO SCH (10:36)
[2022-03-03] MEDS: Multivitamin W/ Minerals 1 TAB PO SCH (10:37)
[2022-03-03] MEDS: Folic Acid 1 MG TAB PO SCH (10:38)
[2022-03-03] MEDS: Gabapentin 100 MG CAP PO SCH (10:38)
[2022-03-03] MEDS: Propranolol HCl 20 MG TAB PO SCH (10:39)
[2022-03-03] MEDS: Spironolactone 25 MG TAB PO SCH (10:39)
[2022-03-03 11:37] VITALS: BP 116/60
[2022-03-03] MEDS ORDERED: Morphine 4 MG/ML VIAL SLOW IVP SCH (12:00)
== END 2022-03-03 15:30 | disposition home or self-care (01) | DRG 433 ==
LOC: CSHERS 20:25 → UNDOADMIN 03-01 01:05 → CSHERHOLD 03-01 01:05 → CSHTELE 03-01 22:45
PROVIDERS: ADMIT Student in an Organized Health Care Education/Training Program; ATTEND Internal Medicine
PROC: 0W9G3ZX Drainage of Peritoneal Cavity, Percutaneous Approach, Diagnostic (ICD-10-PCS; principal; 2022-03-02)
DX: K70.31 Alcoholic cirrhosis of liver with ascites (principal); E87.1 Hypo-osmolality and hyponatremia; I85.10 Secondary esophageal varices without bleeding; K70.10 Alcoholic hepatitis without ascites; E80.6 Other disorders of bilirubin metabolism; D64.9 Anemia, unspecified; F41.9 Anxiety disorder, unspecified; E66.01 Morbid (severe) obesity due to excess calories; F10.20 Alcohol dependence, uncomplicated; Z20.822 Contact with and (suspected) exposure to COVID-19; Z79.899 Other long term (current) drug therapy; Z98.890 Other specified postprocedural states; Z68.35 Body mass index [BMI] 35.0-35.9, adult; Z87.891 Personal history of nicotine dependence
CPT/HCPCS: 36415; 49083; 71045; 74177; 80053; 80074; 80143; 82105; 82140; 82248; 83690; 83735; 85025; 85610; 85730; 86850; 86900; 86901; 87070; 87205; 89051; 80307; J0696; J1940; J2270; J2405; J3490; P9047; Q9967; U0003; U0005

== ENCOUNTER 2022-10-23 19:32 | Emergency (ER) | payer OTHER ==
[2022-10-23] MEDS ORDERED: Ondansetron PF 4 MG/2 ML Vial ONE (20:28)
[2022-10-23 20:47] LABS: #Basophils 0.2 10x3/uL (0.0-0.2); #Eosinphils 0.1 10x3/uL (0.0-0.5); #Monocytes 1.7 10x3/uL (0.0-1.1); #Neutrophils 13.4 10x3/uL (1.5-8.4); %Eosinophils 0.8 % (0.0-6.0); %Lymphocytes 7.7 % (18.0-47.0); %Neutrophils 80.1 % (40.0-75.0); Hemoglobin 9.1 g/dL (13.5-17.5); Mean Corpuscular HGB CONC 33.7 g/dL (32.0-36.0); Mean Corpuscular Hemoglobin 30.7 pg (27.0-33.0); Mean Corpuscular Volume 91.2 fl (81.2-95.1); Mean Platelet Volume 9.6 fl (7.4-10.4); Platelet Count 162 10x3/uL (150-450); RBC Distribution Width 18.9 % (11.5-14.5); Red Blood Cell (RBC) Count 2.96 10x6/uL (4.32-5.72); White Blood Cell (WBC) Count 16.7 10x3/uL (3.5-10.5)
[2022-10-23 21:02] LABS: INR-International Normal Ratio 1.6; PTT 31.5 sec (22.0-33.0); Prothrombin Time 16.7 sec (9.5-12.1)
[2022-10-23 21:06] LABS: ALT (SGPT) 16 U/L (8-55); AST (SGOT) 109 U/L (5-34); Albumin 2.9 g/dL (3.5-5.0); Alkaline Phosphatase 200 U/L (40-110); Anion Gap 18 mmol/L (10-20); BUN (Urea Nitrogen) 4 mg/dL (8.9-20.6); Bilirubin, Total 8.1 mg/dL (0.2-1.2); Calc. Creatinine Clearance 0 mL/min (70-130); Calcium 8.5 mg/dL (7.8-10.44); Carbon Dioxide 21 mmol/L (22-29); Chloride 91 mmol/L (98-107); Estimated GFR 100; Globulin 4.3 g/dL (2.4-3.5); Glucose 104 mg/dL (70-105); Lipase 10 U/L (8-78); Magnesium 1.8 mg/dL (1.6-2.6); Potassium 4.3 mmol/L (3.5-5.1); Protein, Total 7.2 g/dL (6.0-8.3); Sodium 126 mmol/L (136-145)
[2022-10-23] MEDS ORDERED: Piperacillin/Tazobactam 3.375 GM VIAL ONE (22:05)
== END 2022-10-23 23:11 | disposition left against medical advice (07) ==
LOC: CSHERS 19:32
DX: K81.0 Acute cholecystitis (principal); K21.9 Gastro-esophageal reflux disease without esophagitis; F17.200 Nicotine dependence, unspecified, uncomplicated
CPT/HCPCS: 76705; 80053; 83690; 83735; 85025; 85610; 85730; 96374; 96375; J2405; J2543